=== PATIENT | male | born 1975 | race Caucasian/White ===

== ENCOUNTER 2020-04-11 14:34 | Emergency (ER) | payer OTHER, SELFPAY ==
[2020-04-11 14:39] VITALS: BP 119/69; PULSE 108; RESP 16; TEMP 36.4; O2SAT 100
--- NOTE | 2020-04-11 14:52 | ED.LOWEXIN ---
HPI - Extremity Injury (Lower) General Chief Complaint: Extremity Injury, Lower Stated Complaint: swollen ankles/sores on ankles Time Seen by Provider: 04/11/20 14:52 Source: patient Mode of arrival: ambulatory Limitations: no limitations History of Present Illness HPI Narrative: Luis Sigala is a 45 yo male with a PMH of melenoma, depression, anxiety, MS, hx of chemotherapy, who [facility] bilateral ankle swelling. His left ankle is somewhat warm, tender to touch, some erythema Related Data Home Medications Medication Instructions Recorded Confirmed cholecalciferol (vitamin D3) 25 mcg PO DAILY 04/11/20 04/11/20 [Vitamin D3] cyclobenzaprine 10 mg PO HS 04/11/20 04/11/20 hydroxyzine pamoate 25 mg PO TID PRN 04/11/20 04/11/20 lamotrigine 50 mg PO DAILY 04/11/20 04/11/20 sertraline 200 mg PO DAILY 04/11/20 04/11/20 Allergies Allergy/AdvReac Type Severity Reaction Status Date / Time amoxicillin Allergy Unknown Hives Verified 04/11/20 14:51 morphine Allergy Unknown Rash Verified 04/11/20 14:51 Penicillins Allergy Unknown Rash Verified 04/11/20 14:51 Review of Systems Review of Systems: Narrative: CONSTITUTIONAL: Denies fever, chills, sweats. EYES: Denies visual changes, redness, discharge. ENT: Denies rhinorrhea, congestion, sore throat, otalgia. CARDIOVASCULAR: Denies chest pain, palpitations, edema. RESPIRATORY: Denies dyspnea, wheezing, cough GASTROINTESTINAL: Denies abdominal pain, nausea, vomiting, diarrhea. GENITOURINARY: Denies dysuria, hematuria, abnormal discharge SKIN: Denies rash or itching. NEUROLOGIC: Denies numbness, or focal weakness. PSYCHIATRIC: Denies anxiety or depression. R ankle swelling and redness PMFSH Past Medical History Medical History (Updated 04/11/20 @ 15:14 by Desiree Ambriz CNP) Anxiety Depression History of cancer chemotherapy Melanoma Melanoma Muscular dystrophy Family History Family History Grandparent Hypertension Cerebrovascular accident Diabetes mellitus Father Family history of pancreatic cancer Social History Social History Alcohol intake: never Comments At time of signature, I agree with nursing past medical, surgical, social and family history. There is no relevant family history pertinent to the presenting complaint. Exam Narrative: Exam Narrative: GENERAL: This is a well-nourished, well-developed patient, in mild distress. HEAD: normocephalic, atraumatic. EYES: Sclera clear/white. Vision is grossly intact. EARS: External ears normal, Hearing grossly intact. NOSE: External nose normal without nasal discharge, nares without redness, no rhinorrhea. THROAT: Mucous membranes moist, NECK: Neck supple, CARDIOVASCULAR: Regular rate and rhythm without murmurs, gallops, or rubs. RESPIRATORY: Clear to auscultation. Breath sounds equal bilaterally. No wheezes, rales, or rhonchi. GASTROINTESTINAL: Abdomen soft, non-tender, SKIN: warm, intact with no suspicious lesions or rash, good texture and turgor. Left ankle redness with slight swelling, 2+ pedal pulse NEURO: awake, alert, and oriented to person, place and time. There were no obvious focal neurologic abnormalities. Steady gait EXTREMITIES: Normal range of motion. BACK: Nontender without deformity Course Course Emergency Course: Comes to express care with ankle swelling Left ankle has appearance of cellulitis will start on Bactrim Vital Signs Vital signs: Vital Signs Temperature 97.5 F L 04/11/20 14:39 Pulse Rate 108 H 04/11/20 14:39 Respiratory Rate 16 04/11/20 14:39 Blood Pressure 119/69 04/11/20 14:39 Pulse Oximetry 100 04/11/20 14:39 Temperature 97.5 F L 04/11/20 14:39 Pulse Rate 108 H 04/11/20 14:39 Respiratory Rate 16 04/11/20 14:39 Blood Pressure 119/69 04/11/20 14:39 Pulse Oximetry 100 04/11/20 14:39 MDM - Extremity Inj
== END 2020-04-11 15:16 | disposition home or self-care (01) ==
PROVIDERS: Emergency Provider Nurse Practitioner; PCP Family Medicine
DX: L03.116 Cellulitis of left lower limb (principal); F41.9 Anxiety disorder, unspecified; F32.9 Major depressive disorder, single episode, unspecified; G71.00 Muscular dystrophy, unspecified; Z85.820 Personal history of malignant melanoma of skin; Z92.21 Personal history of antineoplastic chemotherapy
CPT/HCPCS: 99213; G0463

== ENCOUNTER 2021-02-12 11:08 | Emergency (ER) | payer OTHER, SELFPAY ==
[2021-02-12 11:16] VITALS: BP 131/80; PULSE 84; RESP 16; TEMP 36.7; O2SAT 99
--- NOTE | 2021-02-12 11:47 | ED.URI ---
HPI - URI/Sore Throat General Chief Complaint: Upper Respiratory Infection Stated Complaint: sore throat Time Seen by Provider: 02/12/21 11:11 Source: patient Mode of arrival: ambulatory Limitations: no limitations History of Present Illness HPI Narrative: 45-year-old male presents to urgent care with complaints of sore throat and body aches for the past 2 days. Patient denies nausea, vomiting, diarrhea, cough, runny nose or nasal congestion. Onset (ago): day(s) (2) Able to tolerate fluids by mouth: Yes Related Data Home Medications Medication Instructions Recorded Confirmed No Home Medications 02/12/21 02/12/21 Allergies Allergy/AdvReac Type Severity Reaction Status Date / Time amoxicillin Allergy Unknown Hives Verified 02/12/21 11:23 morphine Allergy Unknown Rash Verified 02/12/21 11:23 Penicillins Allergy Unknown Rash Verified 02/12/21 11:23 Review of Systems Constitutional: Constitutional: Denies chills, Denies fever(s) and Denies weakness Comments: Body aches ENT: Denies dysphagia, Denies dizziness and Reports sore throat Cardiovascular: Cardiovascular: Denies chest pain, Denies rapid heart rate and Denies radiating jaw, neck or arm pain Respiratory: Respiratory: Denies cough and Denies dyspnea Gastrointestinal: Gastrointestinal: Denies diarrhea, Denies nausea and Denies vomiting PMFSH Past Medical History Medical History Anxiety Depression History of cancer chemotherapy Melanoma Melanoma Muscular dystrophy Family History Family History Grandparent Hypertension Cerebrovascular accident Diabetes mellitus Father Family history of pancreatic cancer Social History Social History Alcohol intake: never Comments At time of signature, I agree with nursing past medical, surgical, social and family history. There is no relevant family history pertinent to the presenting complaint. Exam Const: General: alert and ill appearing HENMT: Ears: external ears normal and TM's normal bilaterally General nose exam: Normal nares present Mouth: Yes moist mucous membranes Throat: uvula midline Other: 3-4+ swelling with mild amount of exudate noted to bilateral tonsils. Voice is muffled. No obvious peritonsillar abscess noted. Neck: Neck: normal visual inspection Resp: Effort & Inspection: normal respiratory effort Cardio: Rate: regular rate, not bradycardic and not tachycardic Rhythm: regular rhythm Skin: General skin exam: normal color Rashes: no rashes Wounds: no wounds Neuro: General: patient oriented x3 and moves all extremities Psych: Mental Status: mental status grossly normal Affect: normal affect Attitude: cooperative Course Vital Signs Vital signs: Vital Signs Temperature 36.7 C 02/12/21 11:16 Pulse Rate 84 02/12/21 11:16 Respiratory Rate 16 02/12/21 11:16 Blood Pressure 131/80 02/12/21 11:16 Pulse Oximetry 99 02/12/21 11:16 Temperature 36.7 C 02/12/21 11:16 Pulse Rate 84 02/12/21 11:16 Respiratory Rate 16 02/12/21 11:16 Blood Pressure 131/80 02/12/21 11:16 Pulse Oximetry 99 02/12/21 11:16 Transfer Transfered to: Other ([facility]) Transfer rationale: Sore throat, rule out peritonsillar abscess, imaging needed Accepting physician: Dr. Torres MDM - URI/Sore Throat MDM Narrative Medical decision making narrative: Due to symptoms, patient will be referred to [facility] emergency room to rule out peritonsillar abscess. Called ER and report was given to Dr. Torres. Transfer form completed and signed. Patient reports that his mother will drive him directly to the emergency room. Differential Diagnosis Differential diagnosis: Likely other (Peritonsillar abscess, tonsillitis, pharyngitis) Lab Data Labs: Lab Results 02/12/21 Range/Units 11:41 POC HERBER
== END 2021-02-12 12:07 | disposition short-term general hospital (02) ==
PROVIDERS: Emergency Provider Nurse Practitioner Family
DX: R07.0 Pain in throat (principal); Z20.822 Contact with and (suspected) exposure to COVID-19; G71.00 Muscular dystrophy, unspecified; Z85.820 Personal history of malignant melanoma of skin; Z92.21 Personal history of antineoplastic chemotherapy
CPT/HCPCS: 36416; 86308; 87081; 87426; 87880; 99213; C9803; G0463